=== PATIENT | male | born 1960 | race Caucasian/White ===

== ENCOUNTER → 2024-01-04 10:01 | Outpatient (REF) | payer BC, SELFPAY | LOC: RCS 10:01 | PROVIDERS: ATTENDING PHYSICIAN Internal Medicine Cardiovascular Disease; FAMILY PHYSICIAN Family Medicine | DX: E78.00 Pure hypercholesterolemia, unspecified (principal) | CPT/HCPCS: 93017 ==

== ENCOUNTER → 2024-07-19 13:43 | Outpatient (REF) | payer BC, SELFPAY | LOC: HWRAD 13:43 | PROVIDERS: ATTENDING PHYSICIAN Nurse Practitioner Family | DX: K40.90 Unilateral inguinal hernia, without obstruction or gangrene, not specified as recurrent (principal); N50.811 Right testicular pain | CPT/HCPCS: 76870; 93976 ==

== ENCOUNTER → 2024-07-22 10:38 | Outpatient (REF) | payer BC, SELFPAY | LOC: RAD 10:38 | PROVIDERS: ATTENDING PHYSICIAN Nurse Practitioner Family | DX: K40.90 Unilateral inguinal hernia, without obstruction or gangrene, not specified as recurrent (principal) | CPT/HCPCS: 74177; Q9967 ==

== ENCOUNTER → 2025-03-19 13:19 | Outpatient (REF) | payer BC, SELFPAY | LOC: RCS 13:19 | PROVIDERS: ATTENDING PHYSICIAN Nurse Practitioner Family | DX: R00.2 Palpitations (principal) | CPT/HCPCS: 93225; 93226 ==